=== PATIENT | male | born 1940 | race Two or more races ===

== ENCOUNTER 2023-12-15 13:24 | Observation (INO) | payer OTHER ==
[2023-12-15 14:04] VITALS: BMI 24.9
[2023-12-15 14:33] LABS: BASO % 0.5 % (0-2.0); EOS % 1.4 % (0-4.5); HEMATOCRIT 42.8 % (35.4-49); HEMOGLOBIN 14.4 GM/dL (11.7-16.9); LYMPH % 14.3 % (8-40); MCH 27.3 pg (25.7-33.7); MCHC 33.6 g/dl (32.0-35.9); MEAN CELL VOLUME 81.2 fl (80-96); MEAN PLT VOLUME 9.3 fl (7.5-11.1); MONO % 7.7 % (3.8-10.2); NEUT % 76.1 % (42.8-82.8); PLATELET COUNT 139 10^3/uL (134-434); RBC 5.26 M/mm3 (4.00-5.60); RDW 20.7 % (11.9-15.9); WHITE BLOOD COUNT 8.3 K/mm3 (4.0-10.0)
[2023-12-15 14:40] LABS: INR 1.17 (0.83-1.09); PROTHROMBIN TIME (PATIENT) 13.4 SEC (9.7-13.0)
[2023-12-15 14:50] LABS: ANISOCYTOSIS 2+; MACROCYTOSIS 2+; TARGET CELLS 2+; TEAR DROP CELLS 1+
[2023-12-15 15:55] LABS: POTASSIUM 4.3 mmol/L (3.5-5.1)
[2023-12-15 15:57] LABS: CALCIUM 10.1 mg/dL (8.5-10.1)
[2023-12-15 15:58] LABS: ALBUMIN 3.7 g/dl (3.4-5.0); BLOOD UREA NITROGEN 14.7 mg/dL (7-18)
[2023-12-15 16:01] LABS: CREATININE 1.6 mg/dL (0.55-1.3)
[2023-12-15 16:02] LABS: BILIRUBIN,TOTAL 0.7 mg/dL (0.2-1); TOT PROT 7.3 g/dl (6.4-8.2)
[2023-12-15 17:01] LABS: EPI CELLS 7 /uL (0-25.1); HYALINE CASTS 2 /uL (0-3.1); PH,URINE 6.5 (5.0-8.0); URINE APPEARANCE CLEAR; URINE BACTERIA 7 /uL (0-1359); URINE BILIRUBIN NEGATIVE (NEGATIVE); URINE COLOR YELLOW; URINE GLUCOSE (UA) NEGATIVE (NEGATIVE); URINE KETONE TRACE (NEGATIVE); URINE LEUK ESTERASE 1+ (NEGATIVE); URINE NITRITE NEGATIVE (NEGATIVE); URINE PROTEIN 1+ (NEGATIVE); URINE RBC 39 /uL (0-23.9); URINE WBC 67 /uL (0-25.8)
[2023-12-15] MEDS: SODIUM CHLORIDE 0.45% 1,000 ML IV SCH (18:45)
[2023-12-15] MEDS ORDERED: ATORVASTATIN CA 40 MG TABLET (FP) ONE (22:29)
[2023-12-15] MEDS ORDERED: DONEPEZIL HCL 5 MG TABLET (FP) ONE (22:29)
[2023-12-15] MEDS ORDERED: MELATONIN 5 MG TABLETS ONE (22:29)
[2023-12-15] MEDS: DONEPEZIL HCL 10 MG TABLET (FP) PO SCH (22:58)
[2023-12-15] MEDS: ATORVASTATIN CA 40 MG TABLET (FP) PO SCH (22:58)
[2023-12-15] MEDS: DORZOLAMIDE HCL/TIMOLOL OPHTHALMIC SOLUTION 10 ML BOTTLE OD SCH (22:58)
[2023-12-15] MEDS: MELATONIN 5 MG TABLETS PO ONE (22:58)
[2023-12-15] MEDS: LATANOPROST 0.005% OPHTH SOLN 2.5ML BOTTLE OD SCH (22:58)
[2023-12-16 06:34] LABS: BASO % 0.3 % (0-2.0); EOS % 2.9 % (0-4.5); HEMATOCRIT 41.3 % (35.4-49); HEMOGLOBIN 13.8 GM/dL (11.7-16.9); LYMPH % 28.6 % (8-40); MCH 27.3 pg (25.7-33.7); MCHC 33.5 g/dl (32.0-35.9); MEAN CELL VOLUME 81.3 fl (80-96); MEAN PLT VOLUME 9.8 fl (7.5-11.1); NEUT % 58.2 % (42.8-82.8); PLATELET COUNT 136 10^3/uL (134-434); RBC 5.07 M/mm3 (4.00-5.60); RDW 20.2 % (11.9-15.9); WHITE BLOOD COUNT 7.9 K/mm3 (4.0-10.0)
[2023-12-16 06:54] LABS: POTASSIUM 3.8 mmol/L (3.5-5.1)
[2023-12-16 06:59] LABS: CALCIUM 10.4 mg/dL (8.5-10.1)
[2023-12-16 07:00] LABS: ALBUMIN 3.7 g/dl (3.4-5.0); BLOOD UREA NITROGEN 14.4 mg/dL (7-18)
[2023-12-16 07:03] LABS: CREATININE 1.2 mg/dL (0.55-1.3)
[2023-12-16 07:04] LABS: BILIRUBIN,TOTAL 0.6 mg/dL (0.2-1); TOT PROT 6.9 g/dl (6.4-8.2)
[2023-12-16 07:32] VITALS: TEMP 98.8
[2023-12-16 08:03] VITALS: RESP 18
[2023-12-16] MEDS ORDERED: LOSARTAN POTASSIUM 50 MG TABLET PO SCH (10:00)
[2023-12-16] MEDS ORDERED: ASPIRIN 81 MG CHEWABLE TABLETS ONE (10:26)
[2023-12-16] MEDS: ASPIRIN 81 MG CHEWABLE TABLETS PO SCH (10:33)
[2023-12-16 11:45] VITALS: PULSE 56
[2023-12-16 13:46] VITALS: BP 138/76
[2023-12-16] MEDS ORDERED: NITROFURANTOIN MACROCRYSTAL 50 MG CAPSULE (FP) ONE (17:39)
[2023-12-16] MEDS: NITROFURANTOIN MONOHYD/M-CRYST 100 MG CAPSULE PO SCH (17:52)
== END 2023-12-16 17:55 | disposition home or self-care (01) ==
LOC: JER 13:24 → JERBED 15:44
PROVIDERS: ADMIT Internal Medicine; ATTEND Nurse Practitioner Acute Care
DX: R55 Syncope and collapse (principal); N39.0 Urinary tract infection, site not specified; E86.0 Dehydration; G30.9 Alzheimer's disease, unspecified; F02.80 Dementia in other diseases classified elsewhere, unspecified severity, without behavioral disturbance, psychotic disturbance, mood disturbance, and anxiety; N17.9 Acute kidney failure, unspecified; R00.1 Bradycardia, unspecified; Z88.0 Allergy status to penicillin; I10 Essential (primary) hypertension; H40.9 Unspecified glaucoma
CPT/HCPCS: 36415; 71045-TC-FY; 80053; 81003; 84439; 84443; 84484; 85025; 85610; 93005; 93010; 93306-TC; 93880-TC; 99285-25; G0378